=== PATIENT | male | born 1970 | race Caucasian/White ===

== ENCOUNTER → 2017-07-08 | Outpatient (CLI) | payer OTHER ==
[~2017-07-08] MED LIST: GADOBUTROL 10 ML VIAL IVP ONE
== END ==
LOC: FIMAGING 11:45
PROVIDERS: ATTEND Internal Medicine Hematology & Oncology
DX: R51 Headache (principal); R93.0 Abnormal findings on diagnostic imaging of skull and head, not elsewhere classified; Z85.858 Personal history of malignant neoplasm of other endocrine glands
CPT/HCPCS: A9585

== ENCOUNTER → 2018-03-02 | Outpatient (CLI) | payer OTHER ==
[~2018-03-02] MED LIST changes: -GADOBUTROL 10 ML VIAL IVP ONE; +LIDOCAINE 1% 300 MG/30 ML SDV ONE
== END ==
LOC: FIMAGING 07:57
PROVIDERS: ATTEND Internal Medicine Hematology & Oncology
PROC: 07B23ZX Excision of Left Neck Lymphatic, Percutaneous Approach, Diagnostic (ICD-10-PCS; principal; 2018-03-02)
DX: C75.5 Malignant neoplasm of aortic body and other paraganglia (principal)

== ENCOUNTER → 2018-05-16 | Outpatient (CLI) | payer OTHER ==
[~2018-05-16] MED LIST changes: +GADOBUTROL 10 ML VIAL IVP ONE; -LIDOCAINE 1% 300 MG/30 ML SDV ONE
== END ==
LOC: FIMAGING 07:03
DX: R59.0 Localized enlarged lymph nodes (principal); R93.7 Abnormal findings on diagnostic imaging of other parts of musculoskeletal system; M48.54XA Collapsed vertebra, not elsewhere classified, thoracic region, initial encounter for fracture; C75.5 Malignant neoplasm of aortic body and other paraganglia
CPT/HCPCS: A9585

== ENCOUNTER → 2018-07-29 | Outpatient (CLI) | payer OTHER | LOC: FIMAGING 11:50 | PROC: 07B23ZX Excision of Left Neck Lymphatic, Percutaneous Approach, Diagnostic (ICD-10-PCS; principal; 2018-07-29) | DX: C75.5 Malignant neoplasm of aortic body and other paraganglia (principal) | CPT/HCPCS: 88184-90; 88185-91 ==